=== PATIENT | male | born 1965 | race Two or more races ===

== ENCOUNTER 2024-01-31 20:53 | Emergency (ER) | payer MEDICAID ==
[~2024-01-31] VITALS: Ht 170.2 cm; Wt 77.3 kg
[2024-01-31 20:55] VITALS: TEMP 98
[2024-01-31] MEDS: SULFAMETHOX/TRIMETH DS 800-160 MG/TABLET PO ONE (22:35)
[2024-01-31] MEDS: CLINDAMYCIN HCL 150 MG CAPSULE PO ONE (22:36)
[2024-01-31] MEDS ORDERED: CLIN-142 PO (23:29)
[2024-01-31] MEDS ORDERED: SULF-261 PO (23:29)
[2024-01-31 23:43] VITALS: BP 112/63; PULSE 84; RESP 18
== END 2024-01-31 23:46 | disposition home or self-care (01) ==
LOC: EMS 20:53
DX: S80.922A Unspecified superficial injury of left lower leg, initial encounter (principal); F12.90 Cannabis use, unspecified, uncomplicated; Z88.0 Allergy status to penicillin; W26.8XXA Contact with other sharp object(s), not elsewhere classified, initial encounter; Y93.89 Activity, other specified; Y92.89 Other specified places as the place of occurrence of the external cause; Y99.8 Other external cause status
CPT/HCPCS: 99283